=== PATIENT | male | born 1960 | race Caucasian/White ===

== ENCOUNTER 2019-12-10 17:23 | Emergency (ER) | payer SELFPAY ==
[2019-12-10 18:26] LABS: INTERNATIONAL RATION (INR) 0.96; PROTHROMBIN TIME 12.8 SEC (11.4-15.4)
[2019-12-10 18:29] LABS: ABSOLUTE BASOPHILS # (AUTO) 0.1 10^3/uL (0.0-0.2); ABSOLUTE EOSINOPHILS # (AUTO) 0.2 10^3/uL (0.0-0.6); ABSOLUTE LYMPHOCYTES (AUTO) 2.7 10^3/uL (0.5-4.7); ABSOLUTE MONOCYTES (AUTO) 0.8 10^3/uL (0.1-1.4); ABSOLUTE NEUT (AUTO) 3.2 10^3/uL (1.7-8.2); EOSINOPHILS % (AUTO) 2.6 % (0-6); HEMATOCRIT 49.8 % (37.9-51.0); HEMOGLOBIN 16.8 g/dL (13.5-17.0); LYMPHOCYTES % (AUTO) 38.6 % (13-45); MEAN CORPUSCULAR HEMOGLOBIN 30.3 pg (27.0-33.4); MEAN CORPUSCULAR HGB CONC 33.7 g/dL (32.0-36.0); MEAN CORPUSCULAR VOLUME 90 fl (80-97); MONOCYTES % (AUTO) 11.8 % (3-13); PLATELET COUNT 288 10^3/uL (150-450); RED BLOOD COUNT 5.53 10^6/uL (4.35-5.55); RED CELL DISTRIBUTION WIDTH 14.4 % (11.5-14.0); TOTAL CELLS COUNTED % (AUTO) 100 %; WHITE BLOOD COUNT 7.1 10^3/uL (4.0-10.5)
[2019-12-10 18:57] LABS: ANISOCYTOSIS SLIGHT; PLATELET COMMENT ADEQUATE
[2019-12-10 19:33] LABS: ALBUMIN 4.5 g/dL (3.5-5.0); ALCOHOL 178 mg/dL (NONE DETECTED); ALKALINE PHOSPHATASE 91 U/L (38-126); ANION GAP 14 (5-19); ASPARTATE AMINO TRANSFERASE 30 U/L (17-59); BILIRUBIN,DIRECT 0.3 mg/dL (0.0-0.4); BILIRUBIN,TOTAL 0.3 mg/dL (0.2-1.3); BLOOD UREA NITROGEN 7 mg/dL (7-20); CALCIUM 9.6 mg/dL (8.4-10.2); CARBON DIOXIDE 27 mmol/L (22-30); CHLORIDE 98 mmol/L (98-107); GLUCOSE 314 mg/dL (75-110); POTASSIUM 4.3 mmol/L (3.6-5.0); TOTAL PROTEIN 8.4 g/dL (6.3-8.2)
[2019-12-10 19:36] LABS: APPEARANCE,URINE CLEAR; BILIRUBIN,URINE NEGATIVE (NEGATIVE); COLOR,URINE STRAW; GLUCOSE, URINE >=500 mg/dL (NEGATIVE); KETONES,URINE TRACE mg/dL (NEGATIVE); LEUKOCYTE ESTERASE,URINE NEGATIVE (NEGATIVE); NITRITE,URINE NEGATIVE (NEGATIVE); PROTEIN,URINE NEGATIVE (NEGATIVE); URINE SPECIFIC GRAVITY 1.007; UROBILINOGEN,URINE NEGATIVE mg/dL (<2.0)
[2019-12-10] MEDS ORDERED: LORAZEPAM INJ 2 MG/1 ML VIAL IV ONE (21:02)
--- NOTE | 2019-12-10 21:15 | ER Document Report ---
ED General - General Chief Complaint: Alcohol Withdrawl Stated Complaint: ETOH Time Seen by Provider: 12/10/19 21:01 TRAVEL OUTSIDE OF THE [place] IN LAST 30 DAYS: No - HPI Onset: Just prior to arrival Severity: Moderate Context: 59 year old male arrives with thoughts of self harm. Etohic. Drank 8 beers and a pint today reportedly. Tells me his goal was only to outlive his dad who about 3 weeks ago. Now he reports he has nothing to live for. States every cell in his body hurts. Reportedly was attempting to go to [place] today but ETOH would not allow this. Instead presented here. H/O Htn, dm and hyperlipidemia. - Related Data Allergies/Adverse Reactions: Penicillins Allergy (Verified 12/10/19 23:06) Home Medications: pt not able to reconcile at this time Past Medical History - Social History Smoking Status: Unknown if Ever Smoked Drug Abuse: None Family History: Reviewed & Not Pertinent Patient has suicidal ideation: Yes Patient has homicidal ideation: No Review of Systems - Review of Systems Constitutional: No symptoms reported EENT: No symptoms reported Cardiovascular: No symptoms reported Respiratory: No symptoms reported Gastrointestinal: No symptoms reported Genitourinary: No symptoms reported Male Genitourinary: No symptoms reported Musculoskeletal: No symptoms reported Skin: No symptoms reported Hematologic/Lymphatic: No symptoms reported Neurological/Psychological: No symptoms reported Physical Exam - Vital signs Vitals: Temp Pulse Resp BP Pulse Ox 97.8 F 100 24 H 166/109 H 100 12/10/19 17:38 12/10/19 17:38 12/10/19 17:38 12/10/19 17:38 12/10/19 17:38 Interpretation: Normal - General General appearance: Appears well, Alert - HEENT Head: Normocephalic, Atraumatic Eyes: Normal Pupils: PERRL - Respiratory Respiratory status: No respiratory distress Chest status: Nontender Breath sounds: Normal Chest palpation: Normal - Cardiovascular Rhythm: Regular Heart sounds: Normal auscultation Murmur: No - Abdominal Inspection: Normal Distension: No distension Bowel sounds: Normal Tenderness: Nontender Organomegaly: No organomegaly - Back Back: Normal, Nontender - Extremities General upper extremity: Normal inspection, Nontender, Normal color, Normal ROM, Normal temperature General lower extremity: Normal inspection, Nontender, Normal color, Normal ROM, Normal temperature, Normal weight bearing. No: Jose Francisco's sign - Neurological Neuro grossly intact: Yes Cognition: Normal Orientation: AAOx4 Sherri Coma Scale Eye Opening: Spontaneous Afton Coma Scale Verbal: Oriented A[place]on Coma Scale Motor: Obeys Commands Sherri Coma Scale Total: 15 Speech: Normal Motor strength normal: LUE, RUE, LLE, RLE Sensory: Normal - Psychological Associated symptoms: Normal affect, Normal mood - Skin Skin Temperature: Warm Skin Moisture: Dry Skin Color: Normal Course - Vital Signs Vital signs: Temp Pulse Resp BP Pulse Ox 98.5 F 102 H 16 154/96 H 98 12/11/19 00:00 12/11/19 00:00 12/11/19 00:00 12/11/19 00:00 12/11/19 00:00 - Laboratory Result Diagrams: 12/10/19 17:25 12/10/19 18:45 Laboratory results interpreted by me: 12/10/19 12/10/19 12/10/19 17:25 18:45 19:25 RDW 14.4 H Glucose 314 H Total Protein 8.4 H Urine Glucose (UA) >=500 H Urine Ketones TRACE H Urine Ascorbic Acid 12/10/19 23:38 RDW Glucose Total Protein Urine Glucose (UA) >=500 H Urine Ketones TRACE H Urine Ascorbic Acid 20 H Discharge - Discharge Clinical Impression: Alcohol intoxication Qualifiers: Complication of substance-induced condition: with unspecified complication Qualified Code(s): F10.929 - Alcohol use, unspecified with intoxication, unspecified Depression Qualifiers: Depression Type: unspecified Qualified Code(s): F32.9 - Major depressive disorder, single episode, unspecified Condition: Fair Disposition: PSYCH HOSP/UNIT
[2019-12-10 23:44] LABS: APPEARANCE,URINE CLEAR; BILIRUBIN,URINE NEGATIVE (NEGATIVE); COLOR,URINE YELLOW; GLUCOSE, URINE >=500 mg/dL (NEGATIVE); KETONES,URINE TRACE mg/dL (NEGATIVE); LEUKOCYTE ESTERASE,URINE NEGATIVE (NEGATIVE); NITRITE,URINE NEGATIVE (NEGATIVE); PROTEIN,URINE NEGATIVE (NEGATIVE); URINE SPECIFIC GRAVITY 1.022; UROBILINOGEN,URINE NEGATIVE mg/dL (<2.0)
[2019-12-10 23:59] LABS: URINE AMPHETAMINES SCREEN NEGATIVE; URINE BARBITURATES SCREEN NEGATIVE; URINE BENZODIAZEPINES SCREEN NEGATIVE; URINE COCAINE SCREEN NEGATIVE; URINE MARIJUANA (THC) SCREEN NEGATIVE; URINE METHADONE SCREEN NEGATIVE; URINE PHENCYCLIDINE SCREEN NEGATIVE
--- NOTE | 2019-12-11 01:01 | EKG REPORT ---
SEVERITY:- BORDERLINE ECG - SINUS TACHYCARDIA BORDERLINE T ABNORMALITIES, INFERIOR LEADS : Confirmed by: Torie Bliss MD 11-Dec-2019 00:59:41
[2019-12-11] MEDS ORDERED: ONDANSETRON HCL INJ/PF 4 MG/2 ML SDV IV ONE (02:54)
[2019-12-11] MEDS ORDERED: LORAZEPAM INJ 2 MG/1 ML VIAL IV ONE ×2 (02:55→07:21)
[2019-12-11] MEDS ORDERED: LABETALOL HCL INJ 20 MG/4 ML DISP.SYRIN IV ONE (06:01)
[2019-12-11] MEDS ORDERED: CLONIDINE HCL 0.2 MG TABLET PO ONE (07:21)
--- NOTE | 2019-12-11 07:25 | ER Document Report ---
Doctor's Note Notes: 12/11/19 07:22 59-year-old male patient was signed out to me at 615 this morning. He was waiting to go to [place]. History and physical was reviewed. I went to speak with the patient to clarify his history. He states that 911 was called by his friends because he is "been sick". He states he has been constantly drinking, a pint plus a 12 pack +2 fruity drinks on a daily basis. He smokes 1/2 packs a day. States he has not been sleeping well for 2 months. States 6 weeks ago he fell on his right leg and it was swollen and painful. The swelling is gone now. He states his been taking 4 ibuprofen tablets every 4 hours for the leg pain. He states this past Sunday he had a nosebleed that lasted for 3 days and was marin johnny blood and blood clots. He states he felt weak and was unable to go to work. His past history is significant for [id number] diabetes was prescribed metformin is not taking it. High blood pressure he was prescribed an unknown blood pressure pill he is not taking it. There is no prior surgery. He also complains of chronic back pain. At this time he is not tachycardic. He does have some shakes when I am speaking with him. He is waiting to be accepted over at [place], as he is requesting to go there for detox. His blood pressure has been running high, however he does have high blood pressure, does not take his medication, and drinks heavily. At this time his alcohol level would be 0 based on labs drawn yesterday, so there is probably some component of alcohol withdrawal. He will be given 1 mg Ativan IV at this time, and clonidine 0.2 mg p.o. 12/11/19 10:09 I just had a phone call with the nurse from the [place] detox center. They are refusing to take the patient. They are holding a bed for him but they are refusing to accept him. 1 of the reasons was because he received IV blood pressure medication. He received a 10 mg dose of labetalol IV at 6:00 this morning before I took over his care. Another reason is because he got IV Ativan. I gave him 1 mg of Ativan IV because there was an IV in and it was simpler to do that then to give him a pill and have the nurse continue to tell me about how he wants something for his anxiety and nerves. They stated they had to see a trend in his blood pressure going down. I told him that his blood pressures most recently were at 167 systolic, then 150 systolic, then 116 systolic. To me that seems like a trend but that did not satisfy the nurse from the detox center. I am going to discharge patient with prescriptions for his metformin that he should be taking, and a blood pressure medication. He will be given a resource sheet to try to get help with his alcohol abuse.
[2019-12-11] MEDS ORDERED: NORMAL SALINE 1000 ML 1,000 ML IV ONE (10:15)
[2019-12-11] MEDS ORDERED: METFORMIN HCL 850 MG TABLET PO ONE (10:21)
--- NOTE | 2019-12-11 10:53 | PSYCHOLOGICAL NOTE ---
Psych Note - Psych Note Date seen by psych provider: 12/11/19 Time seen by psych provider: 08:35 Psych Note: Reason For Consult: Detox Patient is cleared from acute psychiatric services. patient reports that he came to [facility] ED for assistance on detox. He states that he wants to go inpatient for "10 days." Clinician discussed options such as [facility]. He confirms he would like to go to their facility for continued treatment. He denies any thoughts of wanting to harm himself or others. He states he does not want to and confirms he came to [facility] voluntarily. He reports he does have depression from drinking and wants to stop. Behavioral health team assisted with possible voluntary placement at [facility] friend (mental health note).
[2019-12-11 11:20] VITALS: BP 155/91
== END 2019-12-11 11:30 ==
LOC: ER 17:23
DX: F10.929 Alcohol use, unspecified with intoxication, unspecified (principal); F32.9 Major depressive disorder, single episode, unspecified; I10 Essential (primary) hypertension; E11.9 Type 2 diabetes mellitus without complications; Z91.14 Patient's other noncompliance with medication regimen
CPT/HCPCS: 93005; 96376; 99285; 96361; 96374; 96375; 36415; 80307 ×2; 85025; 85610; 80053; 81001; 83036; 93010; J3490; J2060 ×2; J2405; J7030

== ENCOUNTER 2019-12-11 19:16 | Emergency (ER) | payer SELFPAY ==
[2019-12-11] MEDS ORDERED: NORMAL SALINE 1000 ML 1,000 ML IV ONE (21:07)
--- NOTE | 2019-12-11 21:10 | ER Document Report ---
ED Medical Screen (RME) - General Chief Complaint: Medical Clearance Stated Complaint: MEDICAL CLEARANCE/HIGH BLOOD SUGAR Time Seen by Provider: 12/11/19 21:02 Mode of Arrival: Wheelchair Information source: Patient Notes: This 59-year-old alcoholic diabetic with high blood pressure presents to the emergency department reporting he is trying to get into [facility] center. He states he tried to get admitted yesterday but they sent him over here. He was treated here for high blood pressure and given a prescription for his high blood pressure. He reports that he went there this morning to [facility] and they would not take him. He went home and drank 5 beers and returnED back to [facility] at 6 PM they still taken because his blood sugar is high. Patient was laying in the waiting room on the floor. Also waiting in the exam room on the floor. Reports he just does not feel good. Accu-Chek done in PIT was 389. Patient reports he did go to the cafeteria while waiting to be seen and ate. I have greeted and performed a rapid initial assessment of this patient. A comprehensive ED assessment and evaluation of the patient, analysis of test results and completion of the medical decision making process will be conducted by additional ED providers. TRAVEL OUTSIDE OF THE [place] IN LAST 30 DAYS: No - Related Data Allergies/Adverse Reactions: Penicillins Allergy (Verified 12/10/19 23:06) Home Medications: metformin. HCTZ Past Medical History - Social History Frequency of alcohol use: alcoholic - Past Medical History Cardiac Medical History: Reports: Hx Hypertension Physical Exam - Vital signs Vitals: Temp Pulse Resp BP Pulse Ox 98.2 F 96 16 183/97 H 100 12/11/19 20:06 12/11/19 20:06 12/11/19 20:06 12/11/19 20:06 12/11/19 20:06 Course - Vital Signs Vital signs: Temp Pulse Resp BP Pulse Ox 98.2 F 96 16 183/97 H 100 12/11/19 20:06 12/11/19 20:06 12/11/19 20:06 12/11/19 20:06 12/11/19 20:06
[2019-12-11] MEDS ORDERED: CLONIDINE HCL 0.1 MG TABLET PO ONE (21:38)
--- NOTE | 2019-12-11 21:44 | ER Document Report ---
ED General - General Chief Complaint: Medical Clearance Stated Complaint: MEDICAL CLEARANCE/HIGH BLOOD SUGAR Time Seen by Provider: 12/11/19 21:02 Mode of Arrival: Wheelchair TRAVEL OUTSIDE OF THE [place] IN LAST 30 DAYS: No - HPI Notes: 59-year-old male presenting with request for medical clearance for admission to alcohol detox unit. This gentleman was seen and fully evaluated in the ED within the past [address] Brandon Mesa and was medically cleared at that time for outpatient referral to inpatient detox at [place]. Patient left the hospital and drank at least 6 beers. When he presented to [place] for admission he was noted to have strong odor of alcohol and his blood sugar was excess of 400. He was instructed to come back to the emergency department. Patient is been treated with metformin in the past but is not taken any this in over a month. He was also taking an unknown antihypertensive in the past but is not taken any this in over 1 month. He denies any active suicidal ideation, homicidal ideation or hallucinations. He denies any current drug abuse. Currently staying with a girlfriend. He is an unemployed colon. No service. - Related Data Allergies/Adverse Reactions: Penicillins Allergy (Verified 12/10/19 23:06) Home Medications: metformin. HCTZ Past Medical History - General Information source: Patient - Social History Smoking Status: Current Every Day Smoker Frequency of alcohol use: alcoholic Family History: Reviewed & Not Pertinent Patient has suicidal ideation: No Patient has homicidal ideation: No - Past Medical History Cardiac Medical History: Reports: Hx Hypertension Review of Systems - Review of Systems Notes: Constitutional: Negative for fever. HENT: Negative for sore throat. Eyes: Negative for visual changes. Cardiovascular: Negative for chest pain. Respiratory: Negative for shortness of breath. Gastrointestinal: Negative for abdominal pain, vomiting or diarrhea. Genitourinary: Negative for dysuria. Musculoskeletal: Negative for back pain. Skin: Negative for rash. Neurological: Negative for headaches, weakness or numbness. 10 point ROS negative except as marked above and in HPI. Physical Exam - Vital signs Vitals: Temp Pulse Resp BP Pulse Ox 98.2 F 96 16 183/97 H 100 12/11/19 20:06 12/11/19 20:06 12/11/19 20:06 12/11/19 20:06 12/11/19 20:06 - Notes Notes: GENERAL: Somewhat disheveled appearing male of approximately stated age appearing in no acute distress. Strong odor of alcohol present. SKIN: Mild generalized flushing. Good turgor no rashes. HEAD: Normocephalic atraumatic. EYES: PERRLA. EOMI. Conjunctivae and sclerae clear. EARS: CANALS AND TMS CLEAR. NOSE: CLEAR. MOUTH: Moist mucosa. Good dentition. No stridor or edema. No drooling. NECK: Supple. No masses or thyromegaly. No adenopathy. Carotids 2+ without bruits. No JVD. BACK: Symmetrical without tenderness. CHEST: Respirations unlabored. Breath sounds clear and symmetrical. HEART: Regular rhythm. No murmur gallop or rub. ABDOMEN: Soft nontender without masses, organomegaly or rebound. Bowel sounds normally active. No bruits. GENITALIA: Deferred. EXTREMITIES: No edema. No calf tenderness. Cap refill less than 1.5 seconds. Dorsalis pedis and posterior tibial pulses 3+ and symmetrical. NEUROLOGICAL: GCS 15. Alert and oriented x3. Minimally ataxic gait. Mildly slurred speech. Cranial nerves II through XII intact. Sensorimotor and cerebellar normal. Normal tone. PSYCHIATRIC: Appropriate affect. Course - Re-evaluation Re-evalutation: 12/11/19 21:44 We will give the patient some IV fluid and obtain Accu-Chek every 1 hour. We will also start him on some oral metformin and clonidine and I will give him some low-dose Ativan for early alcohol withdrawal. After we get his blood pressure and blood sugar under better control we will try again to refer him back to alcohol detox. - Vital Signs Vital signs: Temp Pulse Resp BP Pulse Ox 98.2 F 66 16 145/77 H 96 12/11/19 20:06 12/12/19 03:26 12/12/19 02:01 12/12/19 03:26 12/12/19 02:01 - Laboratory Result Diagrams: 12/11/19 21:43 12/11/19 21:43 Laboratory results interpreted by me: 12/11/19 12/11/19 12/12/19 21:43 22:54 00:10 Sodium 133.9 L Chloride 96 L Glucose 381 H POC Glucose 323 H Urine Glucose (UA) >=500 H Urine Ketones TRACE H 12/12/19 12/12/19 00:15 01:50 Sodium Chloride Glucose POC Glucose 298 H 289 H Urine Glucose (UA) Urine Ketones Discharge - Discharge Clinical Impression: Chronic alcoholism, Diabetes mellitus type 2, Essential hypertension Disposition: PSYCH HOSP/UNIT
[2019-12-11 22:00] LABS: VENOUS BLOOD BASE EXCESS 2.5 mmol/L; VENOUS BLOOD HCO3 28.7 mmol/L (20-32); VENOUS BLOOD PCO2 49.8 mmHg (35-63); VENOUS BLOOD PH 7.38 (7.30-7.42)
[2019-12-11] MEDS: LORAZEPAM 1 MG TABLET PO SCH (22:06)
[2019-12-11 22:11] LABS: ABSOLUTE BASOPHILS # (AUTO) 0.1 10^3/uL (0.0-0.2); ABSOLUTE EOSINOPHILS # (AUTO) 0.2 10^3/uL (0.0-0.6); ABSOLUTE MONOCYTES (AUTO) 0.7 10^3/uL (0.1-1.4); ABSOLUTE NEUT (AUTO) 3.6 10^3/uL (1.7-8.2); BASOPHILS % (AUTO) 1.1 % (0-2); EOSINOPHILS % (AUTO) 2.9 % (0-6); HEMATOCRIT 45.4 % (37.9-51.0); HEMOGLOBIN 14.9 g/dL (13.5-17.0); LYMPHOCYTES % (AUTO) 29.7 % (13-45); MEAN CORPUSCULAR HEMOGLOBIN 30.3 pg (27.0-33.4); MEAN CORPUSCULAR HGB CONC 32.9 g/dL (32.0-36.0); MEAN CORPUSCULAR VOLUME 92 fl (80-97); MONOCYTES % (AUTO) 11.3 % (3-13); PLATELET COUNT 234 10^3/uL (150-450); RED BLOOD COUNT 4.92 10^6/uL (4.35-5.55); RED CELL DISTRIBUTION WIDTH 13.3 % (11.5-14.0); TOTAL CELLS COUNTED % (AUTO) 100 %; WHITE BLOOD COUNT 6.6 10^3/uL (4.0-10.5)
[2019-12-11 22:16] LABS: ALBUMIN 3.8 g/dL (3.5-5.0); ALCOHOL < 10 mg/dL (NONE DETECTED); ALKALINE PHOSPHATASE 98 U/L (38-126); ANION GAP 11 (5-19); ASPARTATE AMINO TRANSFERASE 24 U/L (17-59); BILIRUBIN,DIRECT 0.3 mg/dL (0.0-0.4); BILIRUBIN,TOTAL 0.4 mg/dL (0.2-1.3); BLOOD UREA NITROGEN 14 mg/dL (7-20); CALCIUM 9.8 mg/dL (8.4-10.2); CARBON DIOXIDE 27 mmol/L (22-30); CHLORIDE 96 mmol/L (98-107); GLUCOSE 381 mg/dL (75-110); POTASSIUM 4.4 mmol/L (3.6-5.0); TOTAL PROTEIN 7.3 g/dL (6.3-8.2)
[2019-12-12] MEDS ORDERED: METFORMIN HCL 500 MG TABLET PO ONE (00:32)
[2019-12-12 00:39] LABS: APPEARANCE,URINE CLEAR; BILIRUBIN,URINE NEGATIVE (NEGATIVE); COLOR,URINE YELLOW; GLUCOSE, URINE >=500 mg/dL (NEGATIVE); KETONES,URINE TRACE mg/dL (NEGATIVE); LEUKOCYTE ESTERASE,URINE NEGATIVE (NEGATIVE); NITRITE,URINE NEGATIVE (NEGATIVE); PROTEIN,URINE NEGATIVE (NEGATIVE); URINE SPECIFIC GRAVITY 1.025; UROBILINOGEN,URINE NEGATIVE mg/dL (<2.0)
[2019-12-12] MEDS: LORAZEPAM 1 MG TABLET PO SCH ×2 (03:10→06:05)
[2019-12-12 03:26] VITALS: BP 145/77
--- NOTE | 2019-12-12 09:02 | PSYCHOLOGICAL NOTE ---
Psych Note - Psych Note Date seen by psych provider: 12/12/19 Time seen by psych provider: 07:50 Psych Note: Patient is a 59 year old male who presents to ED via [facility]. Patient sought treatment at [facility] for chronic ETOH abuse. Patient was sent to ED via [facility] b ecause of concerns with patient's blood sugar levels. Patient denies suicidal and homicidal ideations. Patient states his sister, Ellie, is "working on getting me to [facility]." Patient reports chronic ETOH abuse. Patient reports suicide attempt "8-10 years ago" via ETOH and pills. Impression/Plan: Patient is cleared from acute psychiatric services. Plan is to coordinate with [facility] for voluntary substance abuse treatment. Dr. Hernandez was consulted on the care and management of this patient; attending physician is in agreement with recommendations and disposition.
== END 2019-12-12 09:55 ==
LOC: ER 19:16
DX: E11.65 Type 2 diabetes mellitus with hyperglycemia (principal); I10 Essential (primary) hypertension; F10.239 Alcohol dependence with withdrawal, unspecified; R23.2 Flushing; R47.81 Slurred speech; F17.200 Nicotine dependence, unspecified, uncomplicated; Z88.0 Allergy status to penicillin
CPT/HCPCS: 99283; 96360; 36415; 82962; 80307; 85025; 80053; 81001; 82803; J7030